=== PATIENT | female | born 1985 | race Two or more races ===

== ENCOUNTER 2021-03-21 13:58 | Emergency (ER) | payer OTHER ==
[2021-03-21 14:09] VITALS: BP 114/77; PULSE 88; TEMP 98.3; BMI 17.2
[2021-03-21 19:53] LABS: EPI CELLS 1 /uL (0-25.1); HYALINE CASTS 0 /uL (0-3.1); URINE APPEARANCE CLEAR; URINE BACTERIA 8742 /uL (0-1359); URINE BILIRUBIN NEGATIVE (NEGATIVE); URINE COLOR ORANGE; URINE GLUCOSE (UA) NEGATIVE (NEGATIVE); URINE KETONE NEGATIVE (NEGATIVE); URINE LEUK ESTERASE NEGATIVE (NEGATIVE); URINE NITRITE POSITIVE (NEGATIVE); URINE PROTEIN TRACE (NEGATIVE); URINE RBC 16 /uL (0-23.9); URINE UROBILINOGEN 0.2 mg/dL (0.2-1.0); URINE WBC 2 /uL (0-25.8)
[2021-03-21 20:12] LABS: HCG,QUALITATIVE URINE Negative
== END 2021-03-21 19:05 | disposition left against medical advice (07) ==
LOC: JER 13:58
DX: R21 Rash and other nonspecific skin eruption (principal)
CPT/HCPCS: 36415; 81003; 84703; 87086; 87186; 87491; 87591; 99283-25